=== PATIENT | male | born 1950 | race Caucasian/White ===

== ENCOUNTER → 2018-03-03 | Outpatient (CLI) | payer OTHER | LOC: BMCIMAGING 07:21 | PROVIDERS: ATTEND Orthopaedic Surgery | DX: M16.11 Unilateral primary osteoarthritis, right hip (principal) ==

== ENCOUNTER → 2018-04-09 | Outpatient (CLI) | payer OTHER | LOC: BMCIMAGING 13:35 | PROVIDERS: ATTEND Orthopaedic Surgery | DX: M16.11 Unilateral primary osteoarthritis, right hip (principal) ==

== ENCOUNTER → 2018-05-05 | Outpatient (CLI) | payer OTHER | LOC: FIMAGING 08:36 | PROVIDERS: ATTEND Orthopaedic Surgery | DX: M16.11 Unilateral primary osteoarthritis, right hip (principal); M51.86 Other intervertebral disc disorders, lumbar region ==

== ENCOUNTER 2018-06-16 07:22 | Inpatient (IN) | payer OTHER ==
--- NOTE | 2018-06-16 06:34 | PDHPUP ---
History & Physical Update H&P update statement: This history and physical update is based on an assessment of the patient which was completed after admission or registration (within 24 hours), but prior to the surgery/procedure. H&P update: no change in patient's condition since H&P completed
--- NOTE | 2018-06-16 06:34 | PDIAF ---
- Diagnosis Diagnosis: right ryan Code Status: Full Code - Medication Management Discharge Medications: electronically signed and located in the Home Medication List. - Orders Services needed: Home Care, Physical Therapy Home Care Face to Face: I certify that this patient was under my care and that I had the required jyru-ka-[id number] encounter meeting the encounter requirements on the discharge day. My findings support the fact that the patient is homebound as defined in Home Care Face to Face Continued: CMS Chapter 7 Medicare Benefits Manual 30.1.1 , The condition of the patient is such that there exists a normal inability to leave home and consequently, leaving home would require a considerable and taxing effort. Diet Recommendation: no restrictions on diet Diet Texture: Regular Texture Diet Additional Instructions: TOTAL JOINT ARTHROPLASTY DISCHARGE INSTRUCTIONS 1. Your surgeon follows the [facility] protocol for reducing your risk of DVT (blood clots) following surgery. Medication will be ordered to prevent blood clots. A sudden increase in calf pain and/or swelling could indicate a blood clot in your leg. If this occurs, please call your surgeon or his/her mailing machine assistant. An ultrasound of the leg may be necessary to diagnose a blood clot. If you have conditions that make you a higher risk for blood clots, your surgeon may use more aggressive ways to prevent them. Notify your surgeon if you think you are a high risk for blood clots. 2. Wear your white surgical stockings (RAUDEL hose) for 2 weeks. This decreases your swelling and may help prevent blood clots. It is ok to remove RAUDEL hose at night time to give your legs a break. 3. Swelling and bruising in the surgical leg is common. If you feel that it is excessive, please notify your surgeon. 4. Elevate your surgical leg with the ankle above the hip several times every day. Please keep the leg straight when you elevate by putting pillows under your foot. Do not put pillows under your knee. This will make being able to fully straighten more difficult. This is uncomfortable, but try to do it as much as possible. 5. For total knee replacements use compressive wrap on your knee for 3-5 days after surgery, then you can discontinue it. 6. Use a walker or crutches for 1-2 weeks. Progress your weight-bearing as tolerated. You may start to use a cane when you feel stable and safe. 7. You will receive physical therapy instructions in the hospital. Continue those exercises at home. There are additional exercises in the total joint booklet you were given before surgery. Outpatient physical therapy will begin 7- 10 days after surgery. Please schedule this in advance. 8. Use ice on your knee at least 3-5 times every day for 30 minutes. This helps reduce pain and swelling. Also use it at night before falling asleep. 9. Leave your surgical dressing in place for 2 weeks. Your dressing is water resistant, but not waterproof. Cover it with Saran Wrap or Eocjk-q-Alus before showering. You may shower as soon as you feel safe entering a shower. If you notice bleeding from your incision 2 or 3 days after surgery, please notify your surgeon. 10. Due to narcotics, decreased activity and altered diet, most patients experience constipation after surgery. Use rvro-til-dkbtoaf stool softeners while you are on narcotics. 11. You may drive a car when you are comfortable bearing weight, have good muscular control of your leg and are off narcotics. This usually occurs 2-4 weeks after surgery, depending on which leg was operated on. 12. If there are questions not addressed here, please refer the [facility] book given for more information. If you still have questions, please contact your surgeon s office. 13. If you have a life-threatening emergency, please call 911 and go to the emergency room immediately. For non-life threatening emergencies, please call your physicians office for advice before going to the emergency room. - Follow Up Care Current Providers and Referrals: Bo Van MD [Primary Care Provider] - Axel Kelsey MD [Medical Doctor] -
[~2018-06-16 07:22] MED LIST: ROPIVACAINE 0.2% 80 MG, EPINEPHrine 0.2 MG, KETOROLAC TROMETHAMINE 30 MG, morphINE 10 M... IU ONE; TRANEXAMIC ACID 1,000 MG in NS 100 ML IV ONE
[2018-06-16] MEDS ORDERED: ceFAZolin 2 GM/DEXTROSE 100 ML IV ONE (07:31)
[2018-06-16] MEDS ORDERED: ACETAMINOPHEN 325 MG TAB PO ONE (07:31)
[2018-06-16] MEDS ORDERED: FAMOTIDINE 20 MG TAB PO ONE (07:31)
[2018-06-16] MEDS ORDERED: LR 1,000 ML IV ONE (07:32)
--- NOTE | 2018-06-16 08:27 | PDANEPAE ---
ANE History of Present Illness R total hip arthroplasty ANE Past Medical History - Cardiovascular History Hx Hypertension: Yes Hx Arrhythmias: No Hx Chest Pain: No Hx Coronary Artery / Peripheral Vascular Disease: No Hx CHF / Valvular Disease: No Hx Palpitations: No Cardiovascular History Comment: HPL - Pulmonary History Hx COPD: No Hx Asthma/Reactive Airway Disease: No Hx Recent Upper Respiratory Infection: No Hx Oxygen in Use at Home: No Hx Sleep Apnea: No Sleep Apnea Screening Result - Last Documented: Positive Pulmonary History Comment: CEM triggers - Neurologic History Hx Cerebrovascular Accident: No Hx Seizures: No Hx Dementia: No - Endocrine History Hx Diabetes: No Hypothyroid: No Hyperthyroid: No Obesity: no - Renal History Hx Renal Disorders: Yes Renal History Comment: POST ANESTH URINARY RETENTION - Liver History Hx Hepatic Disorders: No - Neurological & Psychiatric Hx Hx Neurological and Psychiatric Disorders: No - Cancer History Hx Cancer: No - Congenital Disorder History Hx Congenital Disorders: No - GI History GERD: no Hx Gastrointestinal Disorders: No - Other Health History Other Health History: none - Chronic Pain History Chronic Pain: Yes (Right hip) - Surgical History Prior Surgeries: umbillical/ventral hernia repair. meniscus r knee. acl bilateral knees. lumbar fusion. cataract surgery left eye ANE Review of Systems Review of Systems: - Exercise capacity METS (RN): 4 METS ANE Patient History - Allergies Allergies/Adverse Reactions: No Known Allergies Allergy (Verified 06/04/18 11:36) - Home Medications Home Medications: Losartan/Hydrochlorothiazide [Hyzaar 100-12.5 Tablet] 1 each PO DAILY 07/04/12 [ Last Taken 06/15/18] Simvastatin [Zocor] 10 mg PO HS 06/04/18 [Last Taken 06/15/18] - NPO status NPO Since - Liquids (Date): 06/16/18 NPO Since - Liquids (Time): 04:00 NPO Since - Solids (Date): 06/15/18 NPO Since - Solids (Time): 18:00 - Anes Hx Anes Hx: post operative nausea Hx Anesthesia Complications (with details): Significant urinary retention with both GA and SAB, except last surgery (no opioids given intraoperatively, short procedure). - Smoking Hx Smoking Status: Never smoked - Alcohol Use Alcohol Use: Rarely - Family Anes Hx Family Anes Hx: none Family Hx Anesthesia Complications: NEG ANE Labs/Vital Signs - Vital Signs Blood Pressure: 137/97 Heart Rate: 63 Respiratory Rate: 16 O2 Sat (%): 94 Height: 172.72 cm Weight: 79.379 kg ANE Physical Exam - Airway Neck exam: FROM Mallampati Score: Class 2 Mouth exam: normal dental/mouth exam - Pulmonary Pulmonary: clear to auscultation - Cardiovascular Cardiovascular: regular rate and rhythym - ASA Status ASA Status: II ANE Anesthesia Plan Anesthesia Plan: general endotracheal anesthesia, spinal (Risks/benefits of GA/ RA discussed in general and specifically regarding urinary retention. Pt. agrees to trial of SAB placement, GA if unsuccessful.)
[2018-06-16] MEDS ORDERED: ceFAZolin 1 GM/5 ML SYR ONE (08:58)
[2018-06-16] MEDS ORDERED: MIDAZOLAM 2 MG/2 ML VIAL IVP ONE ×2 (09:12→10:23)
[2018-06-16] MEDS ORDERED: fentaNYL 100 MCG/2 ML INJ ONE ×3 (09:19→11:49)
[2018-06-16] MEDS ORDERED: PROPOFOL 200 MG/20 ML VIAL ONE (09:19)
[2018-06-16] MEDS ORDERED: DEXAMETHASONE 4 MG/ML VIAL ONE (09:22)
[2018-06-16] MEDS ORDERED: BUPIVACAINE/DEXTROSE 7.5MG/ML 2 ML SPINAL AMP SP ONE (09:34)
[2018-06-16] MEDS ORDERED: ROCURONIUM 50 MG/5 ML VIAL ONE (09:45)
[2018-06-16] MEDS ORDERED: REMIFENTANIL HCL 1 MG VIAL ONE (10:01)
[2018-06-16] MEDS ORDERED: ePHEDrine SULFATE 25 MG/5 ML SYR ONE (10:09)
[2018-06-16] MEDS ORDERED: ONDANSETRON 4 MG/2 ML VIAL ONE ×2 (10:16→10:59)
[2018-06-16] MEDS ORDERED: fentaNYL 100 MCG/2 ML INJ IVP PRN (10:35)
[2018-06-16] MEDS ORDERED: NALOXONE HCL 0.4 MG/ML INJ IVP PRN (10:35)
[2018-06-16] MEDS ORDERED: SUGAMMADEX SODIUM 200 MG/2 ML VIAL IVP ONE ×2 (11:07→11:09)
[2018-06-16] MEDS ORDERED: diphenhydrAMINE 25 MG CAP PO PRN (11:08)
[2018-06-16] MEDS ORDERED: MAGNESIUM HYDROXIDE 30 ML UDCUP PO PRN (11:08)
[2018-06-16] MEDS ORDERED: BISACODYL 10 MG SUPP PR PRN (11:08)
[2018-06-16] MEDS ORDERED: DIPHENOXYLATE/ATROPINE LOMOTIL 1 TAB PO PRN (11:08)
[2018-06-16] MEDS ORDERED: TEMAZEPAM 15 MG CAP PO PRN (11:08)
[2018-06-16] MEDS ORDERED: PROMETHAZINE HCL 25 MG/ML INJ IVP PRN (11:08)
[2018-06-16] MEDS ORDERED: LACTULOSE 20 GM/30 ML UDCUP PO PRN (11:08)
[2018-06-16] MEDS ORDERED: ONDANSETRON DISINTEGRATING 4 MG TAB PO PRN (11:08)
[2018-06-16] MEDS ORDERED: ONDANSETRON 4 MG/2 ML VIAL IVP PRN (11:08)
[2018-06-16] MEDS ORDERED: POLYETHYLENE GLYCOL 3350 17 GM PKT PO PRN (11:08)
[2018-06-16] MEDS ORDERED: PROMETHAZINE HCL 25 MG SUPPR PR PRN (11:08)
[2018-06-16] MEDS ORDERED: METOCLOPRAMIDE 10 MG/2 ML VIAL IVP PRN (11:08)
[2018-06-16] MEDS ORDERED: CYCLOBENZAPRINE 10 MG TAB PO PRN (11:08)
--- NOTE | 2018-06-16 11:11 | POSTOPPROG ---
Post Op Note Date of Operation: 06/16/18 Surgeon: Axel Kelsey Research Laboratory Technician: bibiana Anesthesiologist: tyler Anesthesia: GET(General Endotracheal) Pre-op Diagnosis: right hip djd Post-op Diagnosis: same Indication: same Procedure: right ryan Inf/Abcess present in the surg proc area at time of surgery?: No Depth: Deep Incisional (Fascial) EBL: 100-500 Drains: Hemovac
--- NOTE | 2018-06-16 11:23 | PDMN ---
Medical Necessity Medical necessity: [place] S560 Hip Arthroplasty, 68 yo s/p R DENG, [facility] IP only
--- NOTE | 2018-06-16 11:29 | POSTANESTH ---
Post Anesthetic Evaluation Cardiovascular Status: Similar to Pre-Op Cond Respiratory Status: Normal, Stable Level of Consciousness/Mental Status: Can Participate in Eval Pain Control: Adequate, Prn Tx Ordered Nausea/Vomiting Control: Adequate, Prn Tx Ordered Complications Possibly Related to Anesthesia: None Noted
[2018-06-16] MEDS ORDERED: LR 1,000 ML IV SCH (11:30)
[2018-06-16] MEDS: ACETAMINOPHEN 325 MG TAB PO SCH ×2 (12:51→17:39)
[2018-06-16] MEDS: TRANEXAMIC ACID 650 MG TAB PO SCH ×2 (12:51→22:20)
[2018-06-16] MEDS: LOSARTAN POTASSIUM 50 MG TAB PO SCH (14:59)
[2018-06-16] MEDS: LOSARTAN/HCTZ 50/12.5 1 TAB PO SCH (15:01)
[2018-06-16] MEDS: oxyCODONE IR 5 MG TAB PO PRN ×2 (16:41→22:26)
[2018-06-16] MEDS: ceFAZolin 2 GM/DEXTROSE 100 ML IV SCH (17:40)
[2018-06-16] MEDS ORDERED: PRAVASTATIN SODIUM 20 MG TAB PO SCH (21:00)
[2018-06-16] MEDS: FAMOTIDINE 20 MG TAB PO SCH (22:19)
[2018-06-16] MEDS: SENNOSIDES/DOCUSATE SODIUM TAB PO SCH (22:20)
[2018-06-17] MEDS: ASPIRIN 325 MG TAB PO SCH ×2 (00:21→08:32)
[2018-06-17] MEDS: ACETAMINOPHEN 325 MG TAB PO SCH ×3 (00:21→08:34)
[2018-06-17] MEDS: ceFAZolin 2 GM/DEXTROSE 100 ML IV SCH (02:25)
[2018-06-17 05:35] VITALS: BP 115/65
[2018-06-17] MEDS: TRANEXAMIC ACID 650 MG TAB PO SCH (06:20)
--- NOTE | 2018-06-17 06:46 | PDIAF ---
- Diagnosis Diagnosis: right ryan Code Status: Full Code - Medication Management Discharge Medications: electronically signed and located in the Home Medication List. - Orders Services needed: Home Care, Physical Therapy Home Care Face to Face: I certify that this patient was under my care and that I had the required jvtg-or-nuyc encounter meeting the encounter requirements on the discharge day. My findings support the fact that the patient is homebound as defined in Home Care Face to Face Continued: CMS Chapter 7 Medicare Benefits Manual 30.1.1 , The condition of the patient is such that there exists a normal inability to leave home and consequently, leaving home would require a considerable and taxing effort. Diet Recommendation: no restrictions on diet Diet Texture: Regular Texture Diet Additional Instructions: TOTAL JOINT ARTHROPLASTY DISCHARGE INSTRUCTIONS 1. Your surgeon follows the [facility] protocol for reducing your risk of DVT (blood clots) following surgery. Medication will be ordered to prevent blood clots. A sudden increase in calf pain and/or swelling could indicate a blood clot in your leg. If this occurs, please call your surgeon or his/her sound assistant. An ultrasound of the leg may be necessary to diagnose a blood clot. If you have conditions that make you a higher risk for blood clots, your surgeon may use more aggressive ways to prevent them. Notify your surgeon if you think you are a high risk for blood clots. 2. Wear your white surgical stockings (RAUDEL hose) for 2 weeks. This decreases your swelling and may help prevent blood clots. It is ok to remove RAUDEL hose at night time to give your legs a break. 3. Swelling and bruising in the surgical leg is common. If you feel that it is excessive, please notify your surgeon. 4. Elevate your surgical leg with the ankle above the hip several times every day. Please keep the leg straight when you elevate by putting pillows under your foot. Do not put pillows under your knee. This will make being able to fully straighten more difficult. This is uncomfortable, but try to do it as much as possible. 5. For total knee replacements use compressive wrap on your knee for 3-5 days after surgery, then you can discontinue it. 6. Use a walker or crutches for 1-2 weeks. Progress your weight-bearing as tolerated. You may start to use a cane when you feel stable and safe. 7. You will receive physical therapy instructions in the hospital. Continue those exercises at home. There are additional exercises in the total joint booklet you were given before surgery. Outpatient physical therapy will begin 7- 10 days after surgery. Please schedule this in advance. 8. Use ice on your knee at least 3-5 times every day for 30 minutes. This helps reduce pain and swelling. Also use it at night before falling asleep. 9. Leave your surgical dressing in place for 2 weeks. Your dressing is water resistant, but not waterproof. Cover it with Saran Wrap or Lwxjg-s-Cipj before showering. You may shower as soon as you feel safe entering a shower. If you notice bleeding from your incision 2 or 3 days after surgery, please notify your surgeon. 10. Due to narcotics, decreased activity and altered diet, most patients experience constipation after surgery. Use wudg-oih-qyvkiie stool softeners while you are on narcotics. 11. You may drive a car when you are comfortable bearing weight, have good muscular control of your leg and are off narcotics. This usually occurs 2-4 weeks after surgery, depending on which leg was operated on. 12. If there are questions not addressed here, please refer the [facility] book given for more information. If you still have questions, please contact your surgeon s office. 13. If you have a life-threatening emergency, please call 911 and go to the emergency room immediately. For non-life threatening emergencies, please call your physicians office for advice before going to the emergency room. - Follow Up Care Current Providers and Referrals: Bo Van MD [Primary Care Provider] - Axel Kelsey MD [Medical Doctor] -
--- NOTE | 2018-06-17 06:49 | SOAPPROG ---
SOAP Progress Note Assessment/Plan: Assessment: s/p right ryan Plan:d/c home stable dvt precautions 06/17/18 06:46 Subjective: no co no cp or sob juan manuel po Objective: Vital Signs Temp Pulse Resp BP Pulse Ox 36.9 C 82 18 115/65 95 06/17/18 04:25 06/17/18 04:25 06/17/18 04:25 06/17/18 04:25 06/17/18 04:25 Laboratory Results 06/17/18 04:50 06/16/18 06/17/18 06/18/18 05:59 05:59 05:59 Intake Total 2885 Output Total 830 Balance 2055 dressing intact intact pdf,ehl toes warm and pink neg homans isaac xrays stable alignment no fx or lucency ICD10 Worksheet Patient Problems: Problems Problem Status Onset Hip arthritis Acute - ICD10 Problem Qualifiers (1) Hip arthritis
[2018-06-17] MEDS: SENNOSIDES/DOCUSATE SODIUM TAB PO SCH (08:32)
[2018-06-17] MEDS: FAMOTIDINE 20 MG TAB PO SCH (08:32)
[2018-06-17] MEDS: LOSARTAN POTASSIUM 50 MG TAB PO SCH (08:32)
[2018-06-17] MEDS: LOSARTAN/HCTZ 50/12.5 1 TAB PO SCH (08:33)
--- NOTE | 2018-06-17 11:33 | ASMTLACE ---
LACE Length of stay for Answers: 2 days current admission Acuity / Level of Answers: Yes Care: Did the patient have an inpatient admission? Comorbidities - select Answers: Opioid dependence all that apply / Chronic pain Other Notes: HTN # of Emergency department Answers: 0 visits in the last 6 months Score: 10 Date Signed: 06/17/2018 11:33 AM Electronically Signed By:CINDI Harper
--- NOTE | 2018-06-17 11:34 | ASMTCMCOM ---
CM Note CM Note Notes: Pt had planned OA of hip. PT rec outpatient. Pt declines HHC. Pt medically stable for d/c with support. No CM d/c needs identified. Date Signed: 06/17/2018 11:34 AM Electronically Signed By:CINDI Harper
== END 2018-06-17 12:44 | disposition home or self-care (01) | DRG 470 ==
LOC: F3N 07:22
PROVIDERS: ADMIT Orthopaedic Surgery; ATTEND Orthopaedic Surgery
DX: M16.11 Unilateral primary osteoarthritis, right hip (principal); I10 Essential (primary) hypertension; N40.0 Benign prostatic hyperplasia without lower urinary tract symptoms; G47.33 Obstructive sleep apnea (adult) (pediatric)
CPT/HCPCS: 97116-GP; 97161-GP; 97165-GO; G8978-GP-CJ; G8979-GP-CI; G8980-GP-CI; G8987-GO-CI; G8988-GO-CI; G8989-GO-CI; J0171; J0690; J1100; J1885; J2250; J2270; J2405; J2704; J2795; J3010

== ENCOUNTER → 2018-08-04 | Outpatient (CLI) | payer OTHER | LOC: BMCIMAGING 08:46 | PROVIDERS: ATTEND Orthopaedic Surgery | DX: Z47.1 Aftercare following joint replacement surgery (principal); Z96.641 Presence of right artificial hip joint ==

== ENCOUNTER → 2018-09-15 | Outpatient (CLI) | payer OTHER | LOC: BMCIMAGING 08:23 | PROVIDERS: ATTEND Orthopaedic Surgery | DX: Z47.1 Aftercare following joint replacement surgery (principal); Z96.641 Presence of right artificial hip joint ==

== ENCOUNTER → 2018-12-17 | Outpatient (CLI) | payer OTHER | LOC: BMCIMAGING 08:25 ==